=== PATIENT | male | born 1940 | race Caucasian/White ===

== ENCOUNTER → 2020-04-18 | Outpatient (CLI) | payer MEDICARE ==
[~2020-04-18] MED LIST: ASA81 MG PO; COUMADIN5 MG PO; LOVENOX60 MG/0.6 SC; METFORMIN HCL500 MG PO; Z.0.LISINOPRIL5 MG PO; Z.0.PRAVACHOL40 MG PO
== END ==
LOC: LAB 10:38
PROVIDERS: ATTEND Family Medicine
DX: E83.119 Hemochromatosis, unspecified (principal)
CPT/HCPCS: G0378

== ENCOUNTER 2020-08-30 13:38 | Emergency (ER) | payer MEDICARE ==
[~2020-08-30] VITALS: Ht 175.3 cm; Wt 107.0 kg
[2020-08-30 14:08] LABS: BASOPHILS % 0.2 % (0.0-1.0); EOSINOPHILS # (AUTO) 0.1 (0.0-0.4); EOSINOPHILS % 1.5 % (0.0-6.0); HEMATOCRIT 39.7 % (38.2-49.6); HEMOGLOBIN 12.4 g/dL (14.0-18.0); LYMPHOCYTES # (AUTO) 0.4 (1.0-3.2); LYMPHOCYTES % 9.4 % (18.0-39.1); MEAN CORPUSCULAR HEMOGLOBIN 25.6 pg (28-32); MEAN CORPUSCULAR HGB CONC 31.2 g/dL (31-35); MEAN CORPUSCULAR VOLUME 81.9 fL (81-99); MONOCYTES # (AUTO) 0.5 (0.2-0.8); NEUTROPHILS # (AUTO) 3.7 (2.1-6.9); NEUTROPHILS % 78.7 % (38.7-80.0); PLATELET COUNT 211 x10e3/uL (140-360); RED BLOOD COUNT 4.85 x10e6/uL (4.3-5.7); RED CELL DISTRIBUTION WIDTH 16.6 % (11.7-14.4)
[2020-08-30] MEDS ORDERED: VITAMIN E400 UNI1 (14:25)
[2020-08-30] MEDS ORDERED: VITAMIN D3 COM1 EACH (14:25)
[2020-08-30] MEDS ORDERED: XARELTO20 MG (14:25)
[2020-08-30] MEDS ORDERED: VITAMIN B12-FO1 EACH (14:25)
[2020-08-30] MEDS ORDERED: OMEPRAZOLE40 MG (14:25)
[2020-08-30] MEDS ORDERED: ARICEPT5 MG PO (14:25)
[2020-08-30 14:27] LABS: ALANINE AMINOTRANSFERASE 15 IU/L (0-55); ALBUMIN 3.7 g/dL (3.5-5.0); ALKALINE PHOSPHATASE 67 IU/L (40-150); ANION GAP 15.1 mmol/L (8-16); BLOOD UREA NITROGEN 14 mg/dL (7-26); BUN/CREATININE RATIO 15 (6-25); CALCIUM 8.3 mg/dL (8.4-10.2); CARBON DIOXIDE 23 mmol/L (22-29); CHLORIDE 104 mmol/L (98-107); CREATINE KINASE 72 IU/L (30-200); CREATININE, SERUM 0.93 mg/dL (0.72-1.25); EST GLOMERULAR FILTRATION RATE > 60 ML/MIN (60-); GLUCOSE 132 mg/dL (74-118); POTASSIUM 4.1 mmol/L (3.5-5.1); SODIUM 138 mmol/L (136-145)
[2020-08-30 16:07] VITALS: BP 160/85
== END 2020-08-30 16:09 | disposition home or self-care (01) ==
LOC: ER 13:58
DX: U07.1 COVID-19 (principal); R06.02 Shortness of breath; R94.31 Abnormal electrocardiogram [ECG] [EKG]; I10 Essential (primary) hypertension; E11.65 Type 2 diabetes mellitus with hyperglycemia; E78.5 Hyperlipidemia, unspecified; K21.9 Gastro-esophageal reflux disease without esophagitis; Z95.1 Presence of aortocoronary bypass graft
CPT/HCPCS: 36415; 71045; 80053; 82550; 82553; 83880; 84484; 85025; 93005; 99284; U0002